=== PATIENT | male | born 1955 | race Caucasian/White ===

== ENCOUNTER → 2018-05-21 | Day surgery (SDC) | payer BC ==
[~2018-05-21] MED LIST: ASPIR 8181 MG PO; CLOPIDOGREL75 MG PO; FENTANYL CITRATE/PF 100MCG/2 ML INJ ONE; GLIPIZIDE10 MG PO; INSULIN REGULAR, HUMAN 100 UNIT/1 ML 3ML VIAL ONE; INVOKANA PO; LYRICA75 MG PO; METFORMIN HCL1000 MG PO; METOPROLOL SUCC25 MG PO; MIDAZOLAM HCL 2 MG/2 ML VIAL ONE; OR PHACO EYE KIT ONE; PIOGLITAZONE30 MG PO; PRAVASTATIN SOD40 MG PO; PREOP PHACO EYE KIT ONE; RAMIPRIL10 MG PO; SERTRALINE HCL50 MG PO; VYBRID PO
--- OUTSIDE RECORDS SUMMARY | 2018-05-21 11:39 | XMS REPORT | Clinical Summary ---
Author Author [facility] Address Unknown Phone Unavailable Care Team Providers Care [employer] Name Role Phone PCP Unavailable Allergies No Known Allergies Medications End Date Status Medication Sig Dispensed Refills Start Date Active aspirin 325 MG tablet Take 325 mg 0 by mouth daily. Active insulin glargine (LANTUS) Inject 30 0 100 unit/mL injection Units subcutaneousl y every morning Use as directed . Active canagliflozin (INVOKANA) Take 300 mg 0 300 mg tablet by mouth daily. Active metFORMIN (GLUCOPHAGE) Take 1,000 mg 0 1000 MG tablet by mouth 2 (two) times daily with breakfast and dinner. Active metoprolol (LOPRESSOR) 50 Take 50 mg by 0 MG tablet mouth daily. Active pravastatin (PRAVACHOL) Take 40 mg by 0 40 MG tablet mouth daily. Active ramipril (ALTACE) 10 MG Take 10 mg by 0 capsule mouth daily. Active ranolazine (RANEXA) 500 Take 500 mg 0 MG 12 hr tablet by mouth 2 (two) times daily. Active vilazodone 40 mg tablet Take 40 mg by 0 mouth daily. Active zolpidem (AMBIEN) 5 MG Take 5 mg by 0 tablet mouth every night as needed for Insomnia. Active isosorbide mononitrate Take 1 tablet 60 tablet 0 (IMDUR) 60 MG 24 hr (60 mg total) 7 tablet by mouth 2 (two) times daily. Active prasugrel (EFFIENT) 10 mg Take 1 tablet 30 tablet 0 Tab tablet (10 mg total) 7 by mouth daily. Active Problems Problem Noted Date Anginal chest pain at rest 09/13/2016 Angina at rest 09/13/2016 Social History Date Tobacco Use Types Packs/Day Years Used Never Smoker Sex Assigned at Date Recorded Not on file Industry Job Start Date Occupation Not on file Not on file Not on file Travel End Travel History Travel Start No recent travel history available. Last Filed Vital Signs Not on file Plan of Treatment Not on file Implants Device Identifier Shelf Expiration Date Model / Serial / Lot Implanted Type Area Manufactur er 04/17/2017 [id number] / / [id number] Device Clsr Angio-Seal Vip 8fr Cardiovasc N/A: Groin ST PANDA [id number] - [id number] ular MED:CARDIA Implanted: Qty: 1 on 09/13/2016 by Ketan Orr MD 04/24/2017 [id number] / / [id number] Synergy Stents-Cor N/A: Coronary [place] Implanted: Qty: 1 on 09/13/2016 by Ketan Brennan MD 04/26/2017 [id number] / / [id number] Synegy Stents-Cor N/A: Coronary [place] Implanted: Qty: 1 on 09/13/2016 by Ketan Brennan MD Results Not on fileafter 05/20/2017 Insurance Payer Benefit Subscriber ID Type Phone Address Plan / Group [facility] xxxxxxxxx [facility] Advance Directives For more information, please contact: [address] [address] Date Inactivated Comments Code Status Date Activated 09/14/2016 4:30 PM Full Code 09/13/2016 5:34 PM This code status was determined by: Patient 09/13/2016 5:34 PM Full Code 09/13/2016 2:21 AM This code status was determined by: Patient
--- OUTSIDE RECORDS SUMMARY | 2018-05-21 11:39 | XMS REPORT ---
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 Allergies, Adverse Reactions, Alerts This patient has no known allergies or adverse reactions. Medications This patient has no known medications. Encounters Start Date/Time End Date/Time Encounter Type Admission Type Attending Clinicians Care Facility Care Department Encounter ID 2017-09-21 00:00:00 2017-09-21 00:00:00 Outpatient [facility] [id number] Results Test Description Test Time Test Comments Text Results Atomic Results Result Comments POCT-GLUCOSE METER 2016-09-14 12:22:00 POC-GLUCOSE METER (BEAKER) (test uzba=8274) 128 mg/dL 70-110 [address]ED AT [address] [address] POCT-GLUCOSE [id number] 08:24:00* Test Item Value Reference Range Comments POC-GLUCOSE METER (BEAKER) (test ztqf=5754) 114 mg/dL 70-110 TESTED AT [address] [address] BASIC METABOLIC [id number] 05:13:00* Test Item Value Reference Range Comments SODIUM (BEAKER) (test grkf=923) 140 meq/L 136-145 POTASSIUM (BEAKER) (test fnhv=736) 3.8 meq/L 3.5-5.1 CHLORIDE (BEAKER) (test yjjc=248) 106 meq/L 98-107 CO2 (BEAKER) (test wltn=047) 21 meq/L 22-29 BLOOD UREA NITROGEN (BEAKER) (test sscy=527) 13 mg/dL 7-21 CREATININE (BEAKER) (test asfk=678) 0.82 mg/dL 0.57-1.25 GLUCOSE RANDOM (BEAKER) (test ojtb=472) 93 mg/dL 70-105 CALCIUM (BEAKER) (test rjid=748) 8.6 mg/dL 8.4-10.2 EGFR (BEAKER) (test wkwn=5594) 96 mL/min/1.73 sq m ESTIMATED GFR IS NOT ACCURATE CREATININE CLEARANCE IN PREDICTING GLOMERULAR FILTRATION RATE. ESTIMATED GFR IS NOT APPLICABLE FOR DIALYSIS PATIENTS. Total 3 timesCREATINE KINASE (CK)2016-09-14 05:13:00* Test Item Value Reference Range Comments CREATINE KINASE TOTAL (BEAKER) (test rsgl=696) 207 U/L 29-200 Total 3 timesCBC W/PLT COUNT & AUTO [id number] 04:56:00* Test Item Value Reference Range Comments WHITE BLOOD CELL COUNT (BEAKER) (test unrw=117) 6.2 K/ L 4.0-10.0 RED BLOOD CELL COUNT (BEAKER) (test hdul=834) 4.96 M/ L 4.20-5.80 HEMOGLOBIN (BEAKER) (test ktqx=879) 14.4 GM/DL 13.0-16.8 HEMATOCRIT (BEAKER) (test eerk=244) 43.8 % 40.0-50.0 MEAN CORPUSCULAR VOLUME (BEAKER) (test pecn=022) 88.2 fL 82.0-98.0 MEAN CORPUSCULAR HEMOGLOBIN (BEAKER) (test pzhq=799) 29.1 pg 27.0-33.0 MEAN CORPUSCULAR HEMOGLOBIN CONC (BEAKER) (test brfl=386) 32.9 GM/DL 32.0-36.0 RED CELL DISTRIBUTION WIDTH (BEAKER) (test cohw=160) 11.9 % 10.3-14.2 PLATELET COUNT (BEAKER) (test vgoz=548) 178 K/CU MM 150-430 MEAN PLATELET VOLUME (BEAKER) (test uglc=164) 7.1 fL 6.5-10.5 NUCLEATED RED BLOOD CELLS (BEAKER) (test shvj=687) 0 /100 WBC 0-0 NEUTROPHILS RELATIVE PERCENT (BEAKER) (test ywkq=670) 58 % LYMPHOCYTES RELATIVE PERCENT (BEAKER) (test jnza=411) 29 % MONOCYTES RELATIVE PERCENT (BEAKER) (test aruw=514) 6 % EOSINOPHILS RELATIVE PERCENT (BEAKER) (test pdva=276) 6 % BASOPHILS RELATIVE PERCENT (BEAKER) (test ipaq=953) 1 % NEUTROPHILS ABSOLUTE COUNT (BEAKER) (test gept=950) 3.62 K/ L 1.80-8.00 LYMPHOCYTES ABSOLUTE COUNT (BEAKER) (test uygi=139) 1.81 K/ L 1.48-4.50 MONOCYTES ABSOLUTE COUNT (BEAKER) (test pacz=461) 0.39 K/ L 0.00-1.30 EOSINOPHILS ABSOLUTE COUNT (BEAKER) (test cdyu=213) 0.36 K/ L 0.00-0.50 BASOPHILS ABSOLUTE COUNT (BEAKER) (test frcv=689) 0.05 K/ L 0.00-0.20 [id number] 22:49:00* Test Item Value Reference Range Comments ACTIVATED CLOTTING TIME (BEAKER) (test fnyx=177) 131 sec TESTED AT [address] [address] POCT-GLUCOSE [id number] 21:23:00* Test Item Value Reference Range Comments POC-GLUCOSE METER (BEAKER) (test msos=5461) 114 mg/dL 70-110 TESTED AT [address] [address] [id number] 21:12:00* Test Item Value Reference Range Comments ACTIVATED CLOTTING TIME (BEAKER) (test bmjn=496) 147 sec TESTED AT [address] [address] CREATINE KINASE (CK)2016-09-13 19:40:00* Test Item Value Reference Range Comments CREATINE KINASE TOTAL (BEAKER) (test izox=798) 158 U/L 29-200 Total 3 [id number] 19:14:00* Test Item Value Reference Range Comments ACTIVATED CLOTTING TIME (BEAKER) (test mfdy=265) 178 sec TESTED AT [address] [address] POCT-GLUCOSE [id number] 18:00:00* Test Item Value Reference Range Comments POC-GLUCOSE METER (BEAKER) (test hank=9808) 112 mg/dL 70-110 TESTED AT [address] [address] [id number] 15:43:00* Test Item Value Reference Range Comments ACTIVATED CLOTTING TIME (BEAKER) (test vreu=736) 270 sec TESTED AT [place] [id number] TROPONIN [id number] 13:25:00* Test Item Value Reference Range Comments TROPONIN I (BEAKER) (test fxsp=694) 0.34 ng/mL 0.00-0.03 Effective 05/05/2014: Reference Range ChangeNew: 0.00-0.03 Previous 0.00-0.15T roponin I (TnI) levels must be interpreted in the context of the presenting symp toms and the clinical findings. Elevated TnI levels indicate myocardial damage, but are not specific for ischemic heart disease. Elevated TnI levels are seen in patients with other cardiac conditions (including myocarditis and congestive he art failure), and slight TnI elevations occur in patients with other conditions, including sepsis, renal failure, acidosis, acute neurological disease, and pers istent tachyarrhythmia.CREATINE KINASE (CK), TOTAL AND [id number] 13:22:00* Test Item Value Reference Range Comments CREATINE KINASE TOTAL (BEAKER) (test gsna=683) 174 U/L 29-200 CREATINE KINASE-MB (BEAKER) (test opgi=789) 4.2 ng/mL 0.0-6.6 CREATINE KINASE-MB INDEX (BEAKER) (test xpll=803) 2.4 % Effective 05/05/2014: CK-MB Reference Range ChangeNew: 0.0-6.6 Previous: 0.0- 4.9CK-MB Reference Range:<6.7 Normal6.7-10.0 Borderline>10.0 Abnormal POCT-GLUCOSE [id number] 11:39:00* Test Item Value Reference Range Comments POC-GLUCOSE METER (BEAKER) (test aofa=4716) 140 mg/dL 70-110 TESTED AT [facility] [address] [facility] [address] HEMOGLOBIN [id number] 11:16:00* Test Item Value Reference Range Comments HEMOGLOBIN A1C (BEAKER) (test nkcw=156) 7.0 % 4.3-6.1 POCT-GLUCOSE [id number] 06:58:00* Test Item Value Reference Range Comments POC-GLUCOSE METER (BEAKER) (test azig=2172) 110 mg/dL 70-110 TESTED AT [facility] [address] [facility] [address] TROPONIN [id number] 04:19:00* Test Item Value Reference Range Comments TROPONIN I (BEAKER) (test ydds=885) 0.39 ng/mL 0.00-0.03 Effective 05/05/2014: Reference Range ChangeNew: 0.00-0.03 Previous 0.00-0.15T roponin I (TnI) levels must be interpreted in the context of the presenting symp toms and the clinical findings. Elevated TnI levels indicate myocardial damage, but are not specific for ischemic heart disease. Elevated TnI levels are seen in patients with other cardiac conditions (including myocarditis and congestive he art failure), and slight TnI elevations occur in patients with other conditions, including sepsis, renal failure, acidosis, acute neurological disease, and pers istent tachyarrhythmia.CREATINE KINASE (CK), TOTAL AND [id number] 04:15:00* Test Item Value Reference Range Comments CREATINE KINASE TOTAL (BEAKER) (test insz=403) 192 U/L 29-200 CREATINE KINASE-MB (BEAKER) (test roay=692) 5.1 ng/mL 0.0-6.6 CREATINE KINASE-MB INDEX (BEAKER) (test edcb=413) 2.7 % Effective 05/05/2014: CK-MB Reference Range ChangeNew: 0.0-6.6 Previous: 0.0- 4.9CK-MB Reference Range:<6.7 Normal6.7-10.0 Borderline>10.0 Abnormal B-TYPE NATRIURETIC FACTOR (BNP)2016-09-13 04:12:00* Test Item Value Reference Range Comments B-TYPE NATRIURETIC PEPTIDE (BEAKER) (test qodr=308) 58 pg/mL 0-100 COMPREHENSIVE METABOLIC [id number] 04:07:00* Test Item Value Reference Range Comments TOTAL PROTEIN (BEAKER) (test eylg=135) 5.9 gm/dL 6.0-8.3 ALBUMIN (BEAKER) (test gtis=8957) 3.8 g/dL 3.5-5.0 ALKALINE PHOSPHATASE (BEAKER) (test ihdy=145) 55 U/L 40-150 BILIRUBIN TOTAL (BEAKER) (test sucl=993) 1.5 mg/dL 0.2-1.2 SODIUM (BEAKER) (test dkkb=179) 141 meq/L 136-145 POTASSIUM (BEAKER) (test amsj=215) 3.8 meq/L 3.5-5.1 CHLORIDE (BEAKER) (test umvf=541) 104 meq/L 98-107 CO2 (BEAKER) (test rmjf=369) 23 meq/L 22-29 BLOOD UREA NITROGEN (BEAKER) (test rdgm=276) 16 mg/dL 7-21 CREATININE (BEAKER) (test gdgz=771) 0.93 mg/dL 0.57-1.25 GLUCOSE RANDOM (BEAKER) (test gdbu=322) 112 mg/dL 70-105 CALCIUM (BEAKER) (test vfru=811) 8.9 mg/dL 8.4-10.2 AST (SGOT) (BEAKER) (test vexg=087) 16 U/L 5-34 ALT (SGPT) (BEAKER) (test jsjq=144) 20 U/L 6-55 EGFR (BEAKER) (test itld=9516) 83 mL/min/1.73 sq m ESTIMATED GFR IS NOT ACCURATE CREATININE CLEARANCE IN PREDICTING GLOMERULAR FILTRATION RATE. ESTIMATED GFR IS NOT APPLICABLE FOR DIALYSIS PATIENTS. BASIC METABOLIC [id number] 04:07:00* Test Item Value Reference Range Comments SODIUM (BEAKER) (test nxbi=584) 141 meq/L 136-145 POTASSIUM (BEAKER) (test gkcm=205) 3.8 meq/L 3.5-5.1 CHLORIDE (BEAKER) (test mvke=360) 104 meq/L 98-107 CO2 (BEAKER) (test fhuh=207) 23 meq/L 22-29 BLOOD UREA NITROGEN (BEAKER) (test hvqx=387) 16 mg/dL 7-21 CREATININE (BEAKER) (test azai=338) 0.93 mg/dL 0.57-1.25 GLUCOSE RANDOM (BEAKER) (test rdok=053) 112 mg/dL 70-105 CALCIUM (BEAKER) (test syoy=366) 8.9 mg/dL 8.4-10.2 EGFR (BEAKER) (test bjhz=1370) 83 mL/min/1.73 sq m ESTIMATED GFR IS NOT ACCURATE CREATININE CLEARANCE IN PREDICTING GLOMERULAR FILTRATION RATE. ESTIMATED GFR IS NOT APPLICABLE FOR DIALYSIS PATIENTS. PROTHROMBIN TIME/[id number] 04:03:00* Test Item Value Reference Range Comments PROTIME (BEAKER) (test ioqt=145) 13.0 seconds 11.7-14.7 INR (BEAKER) (test uasx=202) 1.0 <=5.9 RECOMMENDED COUMADIN/WARFARIN INR THERAPY RANGESSTANDARD DOSE: 2.0 - 3.0 Inclu donald: PROPHYLAXIS for venous thrombosis, systemic embolization; TREATMENT for ana ous thrombosis and/or pulmonary embolus.HIGH RISK: Target INR is 2.5-3.5 for pat ients with mechanical heart valves.CBC W/PLT COUNT & AUTO [id number] 03:54:00* Test Item Value Reference Range Comments WHITE BLOOD CELL COUNT (BEAKER) (test jrqp=975) 5.6 K/ L 4.0-10.0 RED BLOOD CELL COUNT (BEAKER) (test hyey=365) 4.86 M/ L 4.20-5.80 HEMOGLOBIN (BEAKER) (test peyr=775) 14.2 GM/DL 13.0-16.8 HEMATOCRIT (BEAKER) (test cvhs=044) 43.0 % 40.0-50.0 MEAN CORPUSCULAR VOLUME (BEAKER) (test idqy=598) 88.5 fL 82.0-98.0 MEAN CORPUSCULAR HEMOGLOBIN (BEAKER) (test zmod=309) 29.2 pg 27.0-33.0 MEAN CORPUSCULAR HEMOGLOBIN CONC (BEAKER) (test hfnx=586) 33.0 GM/DL 32.0-36.0 RED CELL DISTRIBUTION WIDTH (BEAKER) (test iibw=788) 11.8 % 10.3-14.2 PLATELET COUNT (BEAKER) (test jiov=086) 182 K/CU MM 150-430 MEAN PLATELET VOLUME (BEAKER) (test oqjo=309) 7.1 fL 6.5-10.5 NUCLEATED RED BLOOD CELLS (BEAKER) (test nwbp=615) 0 /100 WBC 0-0 NEUTROPHILS RELATIVE PERCENT (BEAKER) (test vnse=184) 45 % LYMPHOCYTES RELATIVE PERCENT (BEAKER) (test ssmb=329) 41 % MONOCYTES RELATIVE PERCENT (BEAKER) (test opdt=992) 7 % EOSINOPHILS RELATIVE PERCENT (BEAKER) (test kwyd=768) 6 % BASOPHILS RELATIVE PERCENT (BEAKER) (test sdnn=638) 1 % NEUTROPHILS ABSOLUTE COUNT (BEAKER) (test ydak=050) 2.54 K/ L 1.80-8.00 LYMPHOCYTES ABSOLUTE COUNT (BEAKER) (test sgnv=292) 2.27 K/ L 1.48-4.50 MONOCYTES ABSOLUTE COUNT (BEAKER) (test zyoo=691) 0.41 K/ L 0.00-1.30 EOSINOPHILS ABSOLUTE COUNT (BEAKER) (test gvfj=801) 0.34 K/ L 0.00-0.50 BASOPHILS ABSOLUTE COUNT (BEAKER) (test ftdi=183) 0.03 K/ L 0.00-0.20 0.00
--- OUTSIDE RECORDS SUMMARY | 2018-05-21 11:39 | XMS REPORT ---
Author Organization Unknown Address [address] [place] [address] Phone [phone] Care Team Providers Care [employer] Belt Name Role Phone DR. FAN COLÓN 3 [phone] SCOTT NULL MD 82 [phone] KATHY COBB MD 123 [phone] Allergies Code Code System Name Reaction Severity Status Onset NKDA Medications Name Status Start Date Stop Date acetaminophen 300 mg-codeine 30 mg tablet Take 1 tablet every 6 hours by oral route as needed. Completed 05/01/2017 amox/k clav tab 875-125 Completed 03/26/2017 apap/codeine tab 300-30mg Completed 05/01/2017 Augmentin 875 mg-125 mg tablet Take 1 tablet every 12 hours by oral route for 7 days. Completed 01/25/2017 azithromycin 250 mg tablet TAKE 2 TABLETS (500 MG) BY ORAL ROUTE ONCE DAILY FOR 1 DAY THEN 1 TABLET (250 MG) BY ORAL ROUTE ONCE DAILY FOR 4 DAYS Completed 08/09/2017 azithromycin 250 mg tabs Completed 08/09/2017 benzonatate 100 mg caps Completed 07/03/2016 benzonatate 200 mg caps Completed 08/09/2017 benzonatate 200 mg capsule Take 1 capsule 3 times a day by oral route for 10 days. Completed 08/09/2017 cephalexin 500 mg caps Completed 07/03/2016 cephalexin 500 mg capsule Completed 02/16/2016 Cheratussin AC 10 mg-100 mg/5 mL oral liquid Take 10 mL every 4 hours by oral route. Completed 08/09/2017 clonazepam 0.5 mg tablet Take 1 tablet twice a day by oral route as needed for 14 days. Active Not available Co Q-10 200 mg capsule QD Active Not available cyclobenzaprine 10 mg tablet Take 1 tablet twice a day by oral route as needed for 15 days. Completed 07/17/2017 cyclobenzaprine 5 mg tablet Take 1 tablet every day by oral route as needed. Completed 01/25/2017 cyclobenzaprine hcl 10 mg tabs Completed 06/20/2017 cyclobenzaprine hcl 5 mg tabs Completed 03/26/2017 dexamethasone 4 mg/mL injection solution Take 4 mg by injection route. Completed 08/09/2017 Effient 10 mg tablet Take 1 tablet every day by oral route. Active Not available effient 10 mg tabs Completed 03/26/2017 esomeprazole magnesium 40 mg capsule,delayed release Take 1 capsule every day by oral route. Active Not available esomeprazole magnesium 40 mg cpdr Completed 08/09/2017 Farxiga 5 mg tablet Completed 09/15/2016 farxiga 5 mg tabs Completed 07/03/2016 fluticasone 50 mcg/actuation nasal spray,suspension [place] 2 sprays twice a day by intranasal route. Active Not available fluticasone propionate 50 mcg/act susp Completed 05/22/2017 Humalog KwikPen (U-100) Insulin 100 unit/mL subcutaneous INJECT 20 UNITS THREE TIMES DAILY UNDER THE SKIN WITH MEALS Active Not available humalog kwikpen 100 unit/ml sopn Completed 07/17/2017 Invokana 300 mg tablet Take 1 tablet(s) every day by oral route. Active Not available invokana 300 mg tabs Completed 09/27/2017 isosorbide mononitrate ER 30 mg tablet,extended release 24 hr Completed 02/16/2016 isosorbide mononitrate er 30 mg tb24 Completed 03/26/2017 isosorbide mononitrate er 60 mg tb24 Completed 03/26/2017 Kenalog 40 mg/mL suspension for injection Take 40 mg by injection route. Completed 08/09/2017 ketorolac 30 mg/mL (1 mL) injection solution Inject 2 mL by intramuscular route. Completed 05/01/2017 lantus 100 unit/ml soln Completed 03/26/2017 lantus solostar 100 unit/ml sopn Completed 09/27/2017 Lantus Solostar U-100 Insulin 100 unit/mL (3 mL) subcutaneous pen Inject 30 units every day by subcutaneous route. Active Not available Lantus U-100 Insulin 100 unit/mL subcutaneous solution Inject 30 units every day by subcutaneous route for 90 days. Completed 05/01/2017 levocetirizine 5 mg tablet Completed 02/16/2016 Lovaza 1 gram capsule Take 2 capsules twice a day by oral route. Active Not available lyrica 100 mg caps Completed 07/17/2017 Lyrica 100 mg capsule Take 1 capsule every 8 hours by oral route as directed for 30 days. Active Not available lyrica 50 mg caps Completed 06/20/2017 Lyrica 50 mg capsule Take 1 capsule 3 times a day by oral route as directed for 21 days. Completed 06/20/2017 meloxicam 15 mg tablet Take 1 tablet every day by oral route as needed. Completed 07/17/2017 meloxicam 15 mg tabs Completed 05/22/2017 metformin 1,000 mg tablet Take 1 tablet twice a day by oral route. Active Not available metformin hcl 1000 mg tabs Completed 09/27/2017 metoprolol succinate ER 25 mg tablet,extended release 24 hr Take 1 tablet(s) every day by oral route Completed 03/26/2017 metoprolol succinate er 25 mg tb24 Completed 03/26/2017 metoprolol succinate ER 50 mg tablet,extended release 24 hr Take 1 tablet every day by oral route. Completed 01/09/2017 metoprolol succinate er 50 mg tb24 Completed 03/26/2017 metoprolol tartrate 50 mg tablet Take 1 tablet every day by oral route. Active Not available metoprolol tartrate 50 mg tabs Completed 09/27/2017 nabumetone 750 mg tablet Completed 02/16/2016 nitroglycerin 0.4 mg subl Completed 07/12/2016 Nitrostat 0.[address] 1 tablet as needed by sublingual route. Completed 01/09/2017 novolog flexpen 100 unit/ml sopn Completed 07/03/2016 Novolog Flexpen U-100 Insulin aspart 100 unit/mL subcutaneous Inject 20 units 3 times a day by subcutaneous route for 90 days. Completed 01/09/2017 [id number] cap 1gm Completed 09/27/2017 oseltamivir phosphate 75 mg caps Completed 08/09/2017 prasugrel 10 mg tabs Completed 09/27/2017 pravastatin 40 mg tablet Take 1 tablet every day by oral route in the evening. Active Not available pravastatin sodium 40 mg tabs Completed 08/09/2017 prepopik jefferson Completed 03/26/2017 Prepopik 10 mg-3.5 gram-12 gram oral powder packet Completed 02/16/2016 ramipril 10 mg caps Completed 08/09/2017 ramipril 10 mg capsule Take 1 capsule every day by oral route. Active Not available ranexa 500 mg tb12 Completed 03/26/2017 smz/tmp ds tab 800-160 Completed 03/26/2017 Tamiflu 75 mg capsule Take 1 capsule twice a day by oral route for 5 days. Completed 08/09/2017 Tessalon Perles 100 mg capsule Take 1 capsule 3 times a day by oral route. Completed 03/14/2016 tramadol 50 mg tablet i tid prn Completed 07/12/2016 tramadol hcl 50 mg tabs Completed 03/26/2017 Viibryd 20 mg tablet Take 2 tablets every day by oral route. Completed 07/03/2016 viibryd 20 mg tabs Completed 07/03/2016 Viibryd 40 mg tablet Take 1 tablet every day by oral route. Active Not available viibryd 40 mg tabs Completed 09/27/2017 virtussin ac lorenza 100-10/5 Completed 08/09/2017 zolpidem 10 mg tablet Take 0.5 tablets every day by oral route. Completed 09/15/2016 zolpidem tartrate 10 mg tabs Completed 07/03/2016 Problems Name Status Onset Date Source Type II Diabetes Mellitus Uncontrolled Active 02/16/2016 Mixed Hyperlipidemia Active 02/16/2016 Body Mass Index 25-29 - Overweight Active 02/16/2016 Depressive Disorder Active 02/16/2016 Benign Essential Hypertension Active 02/16/2016 Coronary Atherosclerosis Active 02/16/2016 Type 2 Diabetes Mellitus without Complication Active 03/14/2016 Insomnia Active 07/03/2016 Multiple Joint Pain Active 07/03/2016 Chest Pain Active 07/03/2016 AST/SGOT Level Raised Active 07/12/2016 Elevated Total Bilirubin Active 07/12/2016 Benign Prostatic Hyperplasia Active 10/18/2016 Fecal Occult Blood: Positive Active 10/18/2016 Internal Hemorrhoids Active 01/02/2017 Esophagitis Active 01/02/2017 Gastritis Active 01/02/2017 Hiatal Hernia Active 01/02/2017 Body Mass Index 30+ - Obesity Active 01/25/2017 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 01/25/2017 Seasonal Allergic Rhinitis Active 01/25/2017 Elevated Levels of Transaminase & Lactic Acid Dehydrogenase Active 01/25/2017 Sciatica Active 05/01/2017 Procedures Date Name Performed by 01/02/2017 Colonoscopy Notes: repeat in 5 yrs Information not available 09/01/2016 Angioplasty Notes: 2 new stents Information not available 06/18/2011 Coronary Artery Graft Notes: x 4 Information not available 06/18/2011 Neck Spine Disk Surgery Information not available 06/18/2009 Angioplasty Notes: 2 Stents Information not available 06/18/2009 Cholecystectomy Information not available Shoulder Joint Surgery Notes: Right Rotator Cuff Information not available 07/03/2016 Electrocardiogram [facility] - [address] [id number] (Work [place]) 05/03/2017 US, Abdomen [facility] [address] [place] [address] ([address]) Notes: left leg wound surgery -1999 right rotor cuff-2004 2 heart stents 2010 gallbladder removal-2009 CABG x 4-2011 stent insertion: 09/13/16 Lab Results Date Name Specimen Result Interpretation Description Value Range Status Address 08/15/2017 Albumin:creatinine Ratio, Urine No observation recorded. [facility]: [address] 08/09/2017 CMP, Serum or Plasma High Alt 66 U/L 0-55 U/L Final [facility]: [address] High Ast 40 U/L 5-34 U/L Final [facility]: [address] Bun 17.0 mg/dL 8.4-25.7 mg/dL Final [facility]: [address] Alk Phos 64 unit/L 40-150 unit/L Final [facility]: [address] Glucose 94 mg/dL 70-99 mg/dL Final [facility]: [address] Albumin 3.9 g/dL 3.5-5.0 g/dL Final [facility]: [address] Creatinine 0.77 mg/dL 0.72-1.25 mg/dL Final [facility]: [address] eGFR Non- >60 mL/min/1.73m2 >60 mL/min/1.73m2 Final [facility]: [address] Total Bilirubin 0.9 mg/dL 0.2-1.2 mg/dL Final [facility]: [address] eGFR - >60 mL/min/1.73m2 >60 mL/min/1.73m2 Final [facility]: [address] Sodium 141 mEq/L 136-145 mEq/L Final [facility]: [address] Potassium 4.7 mEq/L 3.5-5.1 mEq/L Final [facility]: [address] Chloride 100 mmol/L 98-107 mmol/L Final [facility]: [address] Total Protein 6.7 g/dL 6.4-8.3 g/dL Final [facility]: [address] Calcium 9.7 mg/dL 8.8-10.0 mg/dL Final [facility]: [address] Co2 30.0 mmol/L 23.0-31.0 mmol/L Final [facility]: [address] Anion Gap 11 calc Final [facility]: [address] [place] [address], [place] 08/09/2017 Lipid Panel, Serum High Hdl 77 mg/dL 40-60 mg/dL Final [facility]: [address] High Triglyceride 169 mg/dL 0-149 mg/dL Final [facility]: [address] VLDL Calc. 34 mg/dL Final [facility]: [address] cholesterol/HDL Ratio 2.3 mg/dL Final [facility]: [address] non-HDL Cholesterol Calc. 97 mg/dL 0-160 mg/dL Final [facility]: [address] Cholesterol 174 mg/dL 0-199 mg/dL Final [facility]: [address] LDL Calc. 63 mg/dL 0-130 mg/dL Final [facility]: [address] 08/09/2017 HbA1C (Hemoglobin a1C), Blood High A1C W/eag 7.2 % 1.0-5.7 % Final [facility]: [address] Average Blood Glucose 160 mg/dL Final [facility]: [address], [place] 08/09/2017 Albumin:creatinine Ratio, Urine Type Urine Microlalbumin 10 mg/L [facility]: [address], [place] Type Urine Creatinine 100 mg/dL [facility]: [address], [place] Type A:C Ratio <30 mg/g (Normal) [facility]: [address], [place] 07/17/2017 Rapid Flu (A+B) Nose (nasal passage) Type Flu a negative [facility]: [address] [place] [address], [place] Nose (nasal passage) Type Flu B negative [facility]: [address] [facility], [place] 05/01/2017 CMP, Serum or Plasma High Alt 65 U/L 0-55 U/L Final [facility]: [address] High Ast 41 U/L 5-34 U/L Final [facility]: [address] Bun 14.6 mg/dL 8.4-25.7 mg/dL Final [facility]: [address] [place] [address], [place] Alk Phos 70 unit/L 40-150 unit/L Final [facility]: [address] High Glucose 184 mg/dL 70-99 mg/dL Final [facility]: [address] Albumin 4.2 g/dL 3.5-5.0 g/dL Final [facility]: [address] Creatinine 0.82 mg/dL 0.72-1.25 mg/dL Final [facility]: [address] eGFR Non- >60 mL/min/1.73m2 >60 mL/min/1.73m2 Final [facility]: [address] High Total Bilirubin 1.4 mg/dL 0.2-1.2 mg/dL Final [facility]: [address] eGFR - >60 mL/min/1.73m2 >60 mL/min/1.73m2 Final [facility]: [address] [facility] [place] [address], [place] Sodium 140 mEq/L 136-145 mEq/L Final [facility]: [address] Potassium 4.4 mEq/L 3.5-5.1 mEq/L Final [facility]: [address] Chloride 103 mmol/L 98-107 mmol/L Final [facility]: [address] [place] [address], [place] Total Protein 7.0 g/dL 6.4-8.3 g/dL Final [facility]: [address] [place] [address], [place] Calcium 9.9 mg/dL 8.8-10.0 mg/dL Final [facility]: [address] [place] [address], [place] Co2 23.9 mmol/L 23.0-31.0 mmol/L Final [facility]: [address] Anion Gap 13 calc Final [facility]: [address] 05/01/2017 Lipid Panel, Serum Hdl 55 mg/dL 40-60 mg/dL Final [facility]: [address] High Triglyceride 184 mg/dL 0-149 mg/dL Final [facility]: [address] VLDL Calc. 37 mg/dL Final [facility]: [address] cholesterol/HDL Ratio 2.7 mg/dL Final [facility]: [address] non-HDL Cholesterol Calc. 92 mg/dL 0-160 mg/dL Final [facility]: [address] Cholesterol 147 mg/dL 0-199 mg/dL Final [facility]: [address] LDL Calc. 55 mg/dL 0-130 mg/dL Final [facility]: [address] [place] [address], [place] 05/01/2017 HbA1C (Hemoglobin a1C), Blood High A1C W/eag 7.5 % 1.0-5.7 % Final [facility]: [address] Average Blood Glucose 169 mg/dL Final [facility]: [address] 02/27/2017 Hepatic Function Panel, Serum Alt 44 U/L 0-55 U/L Final [facility]: [address] [place] [address], [place] Ast 30 U/L 5-34 U/L Final [facility]: [address] [place] [address], [place] Alk Phos 65 unit/L 40-150 unit/L Final [facility]: [address] Albumin 4.1 g/dL 3.5-5.0 g/dL Final [facility]: [address] [place] [address], [place] Total Bilirubin 1.1 mg/dL 0.2-1.2 mg/dL Final [facility]: [address] [place] [address], [place] Indirect Bilirubin 0.8 Final [facility]: [address] Direct Bilirubin 0.3 mg/dL 0.0-0.5 mg/dL Final [facility]: [address] Total Protein 6.9 g/dL 6.4-8.3 g/dL Final [facility]: [address] 01/23/2017 CMP, Serum or Plasma High Alt 56 U/L 0-55 U/L Final [facility]: [address] High Ast 42 U/L 5-34 U/L Final [facility]: [address] Bun 15.0 mg/dL 8.4-25.7 mg/dL Final [facility]: [address] Alk Phos 78 unit/L 40-150 unit/L Final [facility]: [address] High Glucose 109 mg/dL 70-99 mg/dL Final [facility]: [address] Albumin 4.2 g/dL 3.5-5.0 g/dL Final [facility]: [address] Creatinine 1.01 mg/dL 0.72-1.25 mg/dL Final [facility]: [address] eGFR Non- >60 mL/min/1.73m2 >60 mL/min/1.73m2 Final [facility]: [address] Total Bilirubin 0.8 mg/dL 0.2-1.2 mg/dL Final [facility]: [address] eGFR - >60 mL/min/1.73m2 >60 mL/min/1.73m2 Final [facility]: [address] [place] [address], [place] Sodium 143 mEq/L 136-145 mEq/L Final [facility]: [address] [place] [address], [place] Potassium 4.5 mEq/L 3.5-5.1 mEq/L Final [facility]: [address] [place] [address], [place] Chloride 101 mmol/L 98-107 mmol/L Final [facility]: [address] [place] [address], [place] Total Protein 7.1 g/dL 6.4-8.3 g/dL Final [facility]: [address] Calcium 9.8 mg/dL 8.8-10.0 mg/dL Final [facility]: [address] Co2 24.8 mmol/L 23.0-31.0 mmol/L Final [facility]: [address] Anion Gap 17 calc Final [facility]: [address] [place] [address], [place] 01/23/2017 Lipid Panel, Serum Hdl 58 mg/dL 40-60 mg/dL Final [facility]: [address] High Triglyceride 305 mg/dL 0-149 mg/dL Final [facility]: [address] VLDL Calc. 61 mg/dL Final [facility]: [address] cholesterol/HDL Ratio 3 mg/dL Final [facility]: [address] non-HDL Cholesterol Calc. 99 mg/dL 0-160 mg/dL Final [facility]: [address] Cholesterol 157 mg/dL 0-199 mg/dL Final [facility]: [address] LDL Calc. 38 mg/dL 0-130 mg/dL Final [facility]: [address] [place] [address], [place] 01/23/2017 HbA1C (Hemoglobin a1C), Blood High A1C W/eag 7.3 % 1.0-5.7 % Final [facility]: [address] Average Blood Glucose 163 mg/dL Final [facility]: [address] [place] [address], [place] 01/09/2017 Culture, Throat Upper Respiratory Culture final report Final [facility] [facility] [address] Result 1 comment Final [facility]: [address] [place] [address], [place] 10/11/2016 Hepatitis B Surface Ab, Quantitative, Serum No observation recorded. [facility]: [address], [place] 10/11/2016 Hepatitis B Surface Ab, Quantitative, Serum Hepatitis B Surf Ab Quant 12.0 mIU/mL immunity>9.9 mIU/mL Final [facility]: [address] [place] [address], [place] 10/11/2016 CMP, Serum or Plasma Alt 33 U/L 0-55 U/L Final [facility]: [address] Ast 30 U/L 5-34 U/L Final [facility]: [address] Bun 16 mg/dL 8-26 mg/dL Final [facility]: [address] Alk Phos 75 unit/L 40-150 unit/L Final [facility]: [address] High Glucose 123 mg/dL 70-99 mg/dL Final [facility]: [address] [facility] [address] Albumin 4.3 g/dL 3.5-5.0 g/dL Final [facility]: [address] [facility] [address] Creatinine 1.03 mg/dL 0.72-1.25 mg/dL Final [facility]: [address] eGFR Non- >60 mL/min/1.73m2 >60 mL/min/1.73m2 Final [facility]: [address] High Total Bilirubin 1.8 mg/dL 0.2-1.2 mg/dL Final [facility]: [address] eGFR - >60 mL/min/1.73m2 >60 mL/min/1.73m2 Final [facility]: [address] Sodium 142 mEq/L 136-145 mEq/L Final [facility]: [address] Potassium 4.7 mEq/L 3.5-5.1 mEq/L Final [facility]: [address] Chloride 103 mmol/L 98-107 mmol/L Final [facility]: [address] Total Protein 6.8 g/dL 6.4-8.3 g/dL Final [facility]: [address] Calcium 9.5 mg/dL 8.8-10.0 mg/dL Final [facility]: [address] Co2 23.3 mmol/L 23.0-31.0 mmol/L Final [facility]: [address] Anion Gap 16 calc Final [facility]: [address] 10/11/2016 Lipid Panel, Serum High Hdl 75 mg/dL 40-60 mg/dL Final [facility]: [address] High Triglyceride 223 mg/dL 0-149 mg/dL Final [facility]: [address] VLDL Calc. 45 mg/dL Final [facility]: [address] cholesterol/HDL Ratio 2 mg/dL Final [facility]: [address] non-HDL Cholesterol Calc. 96 mg/dL 0-160 mg/dL Final [facility]: [address] Cholesterol 171 mg/dL 0-199 mg/dL Final [facility]: [address] LDL Calc. 51 mg/dL 0-130 mg/dL Final [facility]: [address] 10/11/2016 PSA, Serum or Plasma PSA, Total 0.21 NG/mL <4.00 NG/mL Final [facility]: [address] 10/11/2016 HbA1C (Hemoglobin a1C), Blood High A1C W/eag 6.9 % 1.0-5.7 % Final [facility]: [address] Average Blood Glucose 151 mg/dL Final [facility]: [address], [place] 07/17/2016 CMP, Serum or Plasma Sodium 143 mmol/L 136-145 mmol/L Final [facility] (Lab): [address], [place] Potassium 4.6 mmol/L 3.5-5.1 mmol/L Final [facility] (Lab): [address], [place] Chloride 105.0 mmol/L 98-107 mmol/L Final [facility] (Lab): [address], [place] Carbon Dioxide 26.0 mmol/L 21-32 mmol/L [facility] ([facility]): [address], [place] Anion Gap 16.6 - [facility] (Lab): [address], [place] High Glucose 133 mg/dL 74-106 mg/dL Final [facility] (Lab): [address], [place] High Blood Urea Nitrogen 22 mg/dL 7-18 mg/dL Final [facility] (Lab): [address], [place] Glomerular Filtration Rate > 60 mL/min >=60 mL/min Final [facility] (Lab): [address], [place] Creatinine 0.80 mg/dL 0.7-1.3 mg/dL Final [facility] (Lab): [address], [place] High BUN/creatinine Ratio 27.5 - Final [facility] (Lab): [address], [place] Total Protein 6.8 gram/dL 6.4-8.2 gram/dL Final [facility] (Lab): [address], [place] Albumin 3.8 g/dL 3.4-5.0 g/dL Final [facility] (Lab): [address], [place] Globulin 3.0 gram/dL 2.7-4.2 gram/dL Final [facility] (Lab): [address], [place] Albumin/globulin Ratio 1.3 0.75-1.50 Final [facility] (Lab): [address], [place] Calcium 9.1 mg/dL 8.5-10.1 mg/dL Final [facility] (Lab): [address], [place] Bilirubin Total 0.70 mg/dL 0.0-1.0 mg/dL Final [facility] (Lab): [address], [place] SGOT/AST 35 iunit/L 15-37 iunit/L [facility] (Lab): [address], [place] SGPT/ALT 57 iunit/L 12-78 iunit/L [facility] (Lab): [address], [place] Alkaline Phosphatase Total 97 iunit/L 45-117 iunit/L [facility] (Lab): [address], [place] Performing Lab: Final [facility] (Lab): [address], [place] 07/17/2016 CBC W/ Manual Diff White Blood Cell 6.0 K/mm3 4.5-12.5 K/mm3 Final [facility] (Lab): [address], [place] Red Blood Cell 5.56 mill/mm3 4.0-5.8 mill/mm3 Final [facility] (Lab): [address], [place] Hemoglobin 16.5 gram/dL 13.0-17.5 gram/dL [facility] (Lab): [address], [place] Hematocrit 48.9 % 42.0-52.0 % [facility] (Lab): [address], [place] Mean Cell Volume 88 fL 80-98 fL Final [facility] (Lab): [address], [place] Mean Cell HGB 29.8 picogram 27.0-33.0 picogram Final [facility] (Lab): [address], [place] Mean Cell HGB Concetration 33.9 gram/dL 33.0-36.0 gram/dL Final [facility] (Lab): [address], [place] Red Cell Distribution Width 13.4 % 11.6-16.2 % [facility] (Lab): [address], [place] Platelet Count 240 K/mm3 150-450 K/mm3 [facility] (Lab): [address], [place] Mean Platelet Volume 8.7 fL 6.7-11.0 fL [facility] (Lab): [address], [place] Neutrophil # 3.00 K/mm3 1.8-7.7 K/mm3 [facility] (Lab): [address], [place] Lymphocyte # 2.0 K/mm3 1.0-5.0 K/mm3 [facility] (Lab): [address], [place] Monocyte # 0.60 K/mm3 0-0.8 K/mm3 [facility] (Lab): [address], [place] Eosinophil # 0.4 K/mm3 0.0-0.5 K/mm3 [facility] (Lab): [address], [place] Basophil # 0.1 K/mm3 0.0-0.2 K/mm3 [facility] (Lab): [address], [place] Manual Diff Required yes Final [facility] (Lab): [address], [place] Stain Acceptability stain acceptable [facility] (Lab): [address], [place] Total Cells Counted 100 #cells Final [facility] (Lab): [address], [place] Segmented Neutrophils 56 % 39-69 % Final [facility] (Lab): [address], [place] Lymphocyte 29 % 25-55 % Final [facility] (Lab): [address], [place] Monocyte 8 % 0-10 % Final [facility] (Lab): [address], [place] Eosinophil 5 % 0.0-5.0 % [facility] (Lab): [address], [place] High Basophil 2 % 0-1.0 % [facility] (Lab): [address], [place] Morphology Comment normal Final [facility] (Lab): [address] [place] Platelet Estimate adequate [facility] (Lab): [address] [place] Platelet Morphology normal Final [facility] (Lab): [address] [place] Performing Lab: Final [facility] (Lab): [address] [place] 07/17/2016 Glucose, Fingerstick, Blood (Glucometer) High Glubed 186 mg/dL 74-106 mg/dL Final [facility] (Lab): [address] [place] Performing Lab: Final [facility] (Lab): [address] 07/16/2016 Troponin I, Serum or Plasma High troponin-I 0.046 NG/mL 0-0.045 NG/mL Final [facility] ([facility]): [address] [place] Performing Lab: [facility] (Lab): [address] 07/16/2016 Glucose, Fingerstick, Blood (Glucometer) High Glubed 138 mg/dL 74-106 mg/dL Final [facility] (Lab): [address] Performing Lab: [facility] (Lab): [address] 07/16/2016 Glucose, Fingerstick, Blood (Glucometer) High Glubed 186 mg/dL 74-106 mg/dL Final [facility] (Lab): [address] Performing Lab: [facility] (Lab): [address] [place] 07/16/2016 Glucose, Fingerstick, Blood (Glucometer) High Glubed 145 mg/dL 74-106 mg/dL [facility] (Lab): [address] Performing Lab: Final [facility] (Lab): [address] [place] 07/16/2016 Glucose, Fingerstick, Blood (Glucometer) High Glubed 126 mg/dL 74-106 mg/dL Final [facility] (Lab): [address] Performing Lab: Final [facility] (Lab): [address], [place] 07/15/2016 Glucose, Fingerstick, Blood (Glucometer) High Glubed 118 mg/dL 74-106 mg/dL Final [facility] (Lab): [address], [place] Performing Lab: [facility] (Lab): [address], [place] 07/15/2016 CBC W/ Auto Diff White Blood Cell 6.0 K/mm3 4.5-12.5 K/mm3 Final [facility] (Lab): [address], [place] Red Blood Cell 5.20 mill/mm3 4.0-5.8 mill/mm3 Final [facility] (Lab): [address], [place] Hemoglobin 15.5 gram/dL 13.0-17.5 gram/dL Final [facility] (Lab): [address], [place] Hematocrit 45.8 % 42.0-52.0 % Final [facility] (Lab): [address], [place] Mean Cell Volume 88 fL 80-98 fL Final [facility] (Lab): [address], [place] Mean Cell HGB 29.8 picogram 27.0-33.0 picogram Final [facility] (Lab): [address], [place] Mean Cell HGB Concetration 33.8 gram/dL 33.0-36.0 gram/dL Final [facility] (Lab): [address], [place] Red Cell Distribution Width 13.8 % 11.6-16.2 % Final [facility] (Lab): [address], [place] Platelet Count 200 K/mm3 150-450 K/mm3 Final [facility] (Lab): [address], [place] Mean Platelet Volume 8.6 fL 6.7-11.0 fL Final [facility] (Lab): [address], [place] Neutrophil % 55.2 % 39.0-69.0 % [facility] (Lab): [address], [place] Lymphocyte % 27.9 % 25.0-55.0 % [facility] (Lab): [address], [place] Monocyte % 9.6 % 0.0-10.0 % [facility] (Lab): [address], [place] High Eosinophil % 6.5 % 0.0-5.0 % [facility] (Lab): [address], [place] Basophil % 0.8 % 0.0-1.0 % [facility] (Lab): [address], [place] Neutrophil # 3.30 K/mm3 1.8-7.7 K/mm3 [facility] (Lab): [address], [place] Lymphocyte # 1.7 K/mm3 1.0-5.0 K/mm3 Final [facility] (Lab): [address], [place] Monocyte # 0.60 K/mm3 0-0.8 K/mm3 Final [facility] (Lab): [address], [place] Eosinophil # 0.4 K/mm3 0.0-0.5 K/mm3 [facility] (Lab): [address], [place] Basophil # 0.0 K/mm3 0.0-0.2 K/mm3 Final [facility] (Lab): [address], [place] Manual Diff Required no [facility] ([facility]): [address], [place] Performing Lab: Final [facility] (Lab): [address], [place] 07/15/2016 Lipid Panel, Serum Blood venous Triglycerides 141 mg/dL 20-150 mg/dL Final [facility] (Lab): [address], [place] Blood venous Cholesterol 145 mg/dL 0-200 mg/dL Final [facility] (Lab): [address], [place] Blood venous cholesterol/HDL Ratio 2.0 ratio 0-4.9 ratio Final [facility] (Lab): [address], [place] Blood venous High HDL Cholesterol 70 mg/dL 40-60 mg/dL Final [facility] (Lab): [address], [place] Blood venous Low Lipoprotein LDL 70 mg/dL 100-129 mg/dL [facility] (Lab): [address], [place] Blood venous Performing Lab: Final [facility] (Lab): [address], [place] 07/15/2016 CMP, Serum or Plasma Sodium 142 mmol/L 136-145 mmol/L [facility] (Lab): [address], [place] Potassium 4.2 mmol/L 3.5-5.1 mmol/L [facility] (Lab): [address], [place] Chloride 102.0 mmol/L 98-107 mmol/L [facility] (Lab): [address], [place] Carbon Dioxide 27.0 mmol/L 21-32 mmol/L [facility] (Lab): [address], [place] Anion Gap 17.2 - Final [facility] ([facility]): [address], [place] Glucose 103 mg/dL 74-106 mg/dL [facility] (Lab): [address], [place] Blood Urea Nitrogen 18 mg/dL 7-18 mg/dL [facility] (Lab): [address], [place] Glomerular Filtration Rate > 60 mL/min >=60 mL/min Final [facility] (Lab): [address], [place] Creatinine 0.80 mg/dL 0.7-1.3 mg/dL [facility] (Lab): [address], [place] High BUN/creatinine Ratio 22.6 - [facility] (Lab): [address], [place] Total Protein 6.4 gram/dL 6.4-8.2 gram/dL [facility] (Lab): [address], [place] Albumin 3.7 g/dL 3.4-5.0 g/dL [facility] (Lab): [address], [place] Globulin 2.7 gram/dL 2.7-4.2 gram/dL Final [facility] (Lab): [address], [place] Albumin/globulin Ratio 1.4 0.75-1.50 Final [facility] (Lab): [address] [place] Calcium 9.0 mg/dL 8.5-10.1 mg/dL [facility] (Lab): [address] [place] High Bilirubin Total 1.70 mg/dL 0.0-1.0 mg/dL [facility] (Lab): [address] [place] SGOT/AST 23 iunit/L 15-37 iunit/L [facility] ([facility]): [address], [place] SGPT/ALT 34 iunit/L 12-78 iunit/L [facility] ([facility]): [address] [place] Alkaline Phosphatase Total 81 iunit/L 45-117 iunit/L Final [facility] (Lab): [address] [place] Performing Lab: [facility] (Lab): [address] [place] 07/15/2016 Troponin I, Serum or Plasma Panic High troponin-I 0.057 NG/mL 0-0.045 NG/mL Final [facility] ([facility]): [address] [place] Performing Lab: [facility] (Lab): [address] [place] 07/15/2016 Glucose, Fingerstick, Blood (Glucometer) High Glubed 158 mg/dL 74-106 mg/dL Final [facility] ([facility]): [address] [place] Performing Lab: Final [facility] (Lab): [address] [place] 07/15/2016 Glucose, Fingerstick, Blood (Glucometer) High Glubed 120 mg/dL 74-106 mg/dL Final [facility] ([facility]): [address] [place] Performing Lab: Final [facility] (Lab): [address] [place] 07/15/2016 Glucose, Fingerstick, Blood (Glucometer) High Glubed 124 mg/dL 74-106 mg/dL Final [facility] (Lab): [address], [place] Performing Lab: Final [facility] (Lab): [address], [place] 07/14/2016 CBC W/ Auto Diff White Blood Cell 7.1 K/mm3 4.5-12.5 K/mm3 Final [facility] (Lab): [address], [place] Red Blood Cell 5.10 mill/mm3 4.0-5.8 mill/mm3 Final [facility] (Lab): [address], [place] Hemoglobin 14.9 gram/dL 13.0-17.5 gram/dL Final [facility] (Lab): [address], [place] Hematocrit 45.4 % 42.0-52.0 % Final [facility] (Lab): [address], [place] Mean Cell Volume 89 fL 80-98 fL Final [facility] (Lab): [address], [place] Mean Cell HGB 29.3 picogram 27.0-33.0 picogram Final [facility] (Lab): [address], [place] Low Mean Cell HGB Concetration 32.9 gram/dL 33.0-36.0 gram/dL Final [facility] (Lab): [address], [place] Red Cell Distribution Width 14.0 % 11.6-16.2 % Final [facility] (Lab): [address], [place] Platelet Count 207 K/mm3 150-450 K/mm3 Final [facility] (Lab): [address], [place] Mean Platelet Volume 7.9 fL 6.7-11.0 fL Final [facility] (Lab): [address], [place] Neutrophil % 58.9 % 39.0-69.0 % Final [facility] (Lab): [address], [place] Lymphocyte % 27.8 % 25.0-55.0 % Final [facility] (Lab): [address], [place] Monocyte % 7.8 % 0.0-10.0 % Final [facility] (Lab): [address], [place] Eosinophil % 4.7 % 0.0-5.0 % [facility] (Lab): [address], [place] Basophil % 0.8 % 0.0-1.0 % Final [facility] (Lab): [address], [place] Neutrophil # 4.20 K/mm3 1.8-7.7 K/mm3 Final [facility] (Lab): [address], [place] Lymphocyte # 2.0 K/mm3 1.0-5.0 K/mm3 Final [facility] (Lab): [address], [place] Monocyte # 0.60 K/mm3 0-0.8 K/mm3 Final [facility] (Lab): [address], [place] Eosinophil # 0.3 K/mm3 0.0-0.5 K/mm3 Final [facility] (Lab): [address], [place] Basophil # 0.1 K/mm3 0.0-0.2 K/mm3 Final [facility] (Lab): [address], [place] Performing Lab: [facility] ([facility]): [address], [place] 07/14/2016 Prothrombin Time Prothrombin Time Patient 9.4 seconds 9.0-13.0 seconds Final [facility] (Lab): [address], [place] International Normal Ratio 0.8 0.8-1.2 Final [facility] (Lab): [address], [place] Performing Lab: [facility] (Lab): [address], [place] 07/14/2016 Partial Thromboplastin Time Normal Thromboplastin Time Partial 30.6 seconds 25.0-36.5 seconds Final [facility] (Lab): [address], [place] Performing Lab: Final [facility] (Lab): [address], [place] 07/14/2016 CMP, Serum or Plasma Blood venous Sodium 141 mmol/L 136- 145 mmol/L Final [facility] (Lab): [address], [place] Blood venous Potassium 3.8 mmol/L 3.5-5.1 mmol/L Final [facility] (Lab): [address], [place] Blood venous Chloride 103.0 mmol/L 98-107 mmol/L Final [facility] (Lab): [address], [place] Blood venous Carbon Dioxide 31.0 mmol/L 21-32 mmol/L Final [facility] (Lab): [address], [place] Blood venous Anion Gap 10.8 - Final [facility] (Lab): [address], [place] Blood venous Glucose 78 mg/dL 74-106 mg/dL Final [facility] (Lab): [address], [place] Blood venous High Blood Urea Nitrogen 21 mg/dL 7-18 mg/dL Final [facility] (Lab): [address], [place] Blood venous Glomerular Filtration Rate > 60 mL/min >=60 mL/min Final [facility] (Lab): [address], [place] Blood venous Creatinine 0.90 mg/dL 0.7-1.3 mg/dL Final [facility] (Lab): [address], [place] Blood venous High BUN/creatinine Ratio 24.1 - Final [facility] (Lab): [address], [place] Blood venous Total Protein 6.6 gram/dL 6.4-8.2 gram/dL Final [facility] (Lab): [address], [place] Blood venous Albumin 3.7 g/dL 3.4-5.0 g/dL Final [facility] (Lab): [address], [place] Blood venous Globulin 2.9 gram/dL 2.7-4.2 gram/dL Final [facility] (Lab): [address], [place] Blood venous Albumin/globulin Ratio 1.3 0.75-1.50 Final [facility] (Lab): [address], [place] Blood venous Calcium 9.0 mg/dL 8.5-10.1 mg/dL Final [facility] (Lab): [address], [place] Blood venous High Bilirubin Total 1.10 mg/dL 0.0-1.0 mg/dL Final [facility] (Lab): [address], [place] Blood venous SGOT/AST 24 iunit/L 15-37 iunit/L Final [facility] (Lab): [address], [place] Blood venous SGPT/ALT 37 iunit/L 12-78 iunit/L Final [facility] (Lab): [address], [place] Blood venous Alkaline Phosphatase Total 86 iunit/L 45-117 iunit/L Final [facility] (Lab): [address], [place] Blood venous Performing Lab: Final [facility] (Lab): [address] [place] 07/14/2016 CK (Creatine Kinase), Total, Serum High Creatine Kinase (CK) 237 iunit/L 26-208 iunit/L Final [facility] ([facility]): [address] [place] Performing Lab: Final [facility] (Lab): [address] [place] 07/14/2016 Lipase, Serum or Plasma Normal Lipase 168 U/L 73.0-393.0 U/L Final [facility] ([facility]): [address] [place] Performing Lab: Final [facility] (Lab): [address] [place] 07/14/2016 Troponin I, Serum or Plasma Normal troponin-I 0.031 NG/mL 0-0.045 NG/mL Final [facility] ([facility]): [address] [place] Performing Lab: Final [facility] (Lab): [address] [place] 07/14/2016 BNP (B-type Natriuretic Peptide), Blood B-type Natriuretic Peptide 11.79 pgram/mL 0-100 pgram/mL Final [facility] ([facility]): [address] [place] Performing Lab: Final [facility] (Lab): [address], [place] 07/14/2016 Troponin I, Serum or Plasma troponin-I 0.031 NG/mL 0-0.045 NG/mL Final [facility] (Lab): [address], [place] Performing Lab: Final [facility] (Lab): [address], [place] 07/14/2016 Glucose, Fingerstick, Blood (Glucometer) Blood capillary Low Glubed 66 mg/dL 74-106 mg/dL Final [facility] ([facility]): [address], [place] Blood capillary Performing Lab: Final [facility] (Lab): [address], [place] 07/14/2016 HbA1C (Hemoglobin a1C), Blood High Glycosylated Hemoglobin (Ha1C) 6.5 % HbA1 4.8-6.0 % HbA1 Final [facility] (Lab): [address], [place] Estimated Average Glucose 140 mg/dL Final [facility] (Lab): [address], [place] Performing Lab: [facility] (Lab): [address], [place] 07/14/2016 Troponin I, Serum or Plasma Panic High troponin-I 0.063 NG/mL 0-0.045 NG/mL Final [facility] ([facility]): [address], [place] Performing Lab: [facility] (Lab): [address], [place] 07/14/2016 Glucose, Fingerstick, Blood (Glucometer) High Glubed 196 mg/dL 74-106 mg/dL Final [facility] ([facility]): [address], [place] Performing Lab: [facility] ([facility]): [address], [place] 07/12/2016 Gamma-glutamyl Transferase (Ggt), Serum No observation recorded. [facility]: [id number], [place] 07/12/2016 Gamma-glutamyl Transferase (Ggt), Serum Ggt 31 IU/L 0- 65 IU/L Final [facility]: [address], [place] 07/12/2016 Hepatic Function Panel, Serum Alt 41 U/L 0-55 U/L Final [facility]: [address] [place] [address], [place] Ast 34 U/L 5-34 U/L Final [facility] Laboratory: [address] [address], [place] Alk Phos 80 unit/L 40-150 unit/L Final [facility]: [address] Albumin 4.5 g/dL 3.5-5.0 g/dL Final [facility]: [address] High Total Bilirubin 1.8 mg/dL 0.2-1.2 mg/dL Final [facility] Laboratory: [address] High Direct Bilirubin 0.6 mg/dL 0.0-0.5 mg/dL Final [facility]: [address] Total Protein 7.1 g/dL 6.4-8.3 g/dL Final [facility] Laboratory: [address] 07/03/2016 CMP, Serum or Plasma Blood venous Alt 48.0 U/L 0.0-55.0 U/L Final [facility] Laboratory: [address] Blood venous High Ast 41.0 U/L 5.0-34.0 U/L Final [facility] Laboratory: [address] Blood venous Bun 12.0 mg/dL 8.0-26.0 mg/dL Final [facility] Laboratory: [address] Blood venous Alk Phos 86.0 unit/L 40.0-150.0 unit/L Final [facility]: [address] Blood venous High Glucose 135.0 mg/dL 70.0-99.0 mg/dL Final [facility]: [address] Blood venous Albumin 4.4 g/dL 3.5-5.0 g/dL Final [facility] Laboratory: [address] Blood venous Creatinine 0.9 mg/dL 0.7-1.3 mg/dL Final [facility]: [address] Blood venous eGFR Non- >60 mL/min/1.73m2 >60.0 mL/min/1.73m2 Final [facility] Laboratory: [address] [place] [address], [place] Blood venous High Total Bilirubin 1.8 mg/dL 0.2-1.2 mg/dL Final [facility] Laboratory: [address] [place] [address], [place] Blood venous eGFR - >60 mL/min/1.73m2 >60.0 mL/min/1.73m2 Final [facility]: [address] [place] [address], [place] Blood venous Sodium 144.0 mEq/L 137.0-144.0 mEq/L Final [facility]: [address] [place] [address], [place] Blood venous Potassium 4.4 mEq/L 3.5-5.0 mEq/L Final [facility] Laboratory: [address] [place] [address], [place] Blood venous Chloride 103.0 mmol/L 101.0-110.0 mmol/L Final [facility] Laboratory: [address] Blood venous Total Protein 7.0 g/dL 6.4-8.3 g/dL Final [facility] Laboratory: [address] Blood venous Calcium 9.8 mg/dL 8.4-10.2 mg/dL Final [facility] Laboratory: [address] [place] [address], [place] Blood venous Co2 27 mmol/L 22-31 mmol/L Final [facility]: [address] Blood venous Anion Gap 14.0 calc Final [facility] Laboratory: [address] [place] [address] 07/03/2016 Lipid Panel, Serum Blood venous High Hdl 82.0 mg/dL 40.0- 60.0 mg/dL Final [facility] Laboratory: [address] [place] [address], [place] Blood venous Triglyceride 86.0 mg/dL 0.0-149.0 mg/dL Final [facility] Laboratory: [address] [place] [address], [place] Blood venous VLDL Calc. 17.2 mg/dL Final [facility]: [address] Blood venous cholesterol/HDL Ratio 1.9 mg/dL Final [facility] Laboratory: [address] [place] [address], [place] Blood venous non-HDL Cholesterol Calc. 74.0 mg/dL 0.0-160.0 mg/dL Final [facility] Laboratory: [address] Blood venous Cholesterol 156.0 mg/dL 0.0-199.0 mg/dL Final [facility] Laboratory: [address] Blood venous LDL Calc. 56.8 mg/dL 0.0-130.0 mg/dL Final [facility] Laboratory: [address] [address], [place] 07/03/2016 HbA1C (Hemoglobin a1C), Blood High A1C W/eag 6.9 % 1.0-5.7 % Final [facility] Laboratory: [address] Average Blood Glucose 151.3 mg/dL Final [facility] Laboratory: [address] [address], [place] 02/16/2016 Hepatitis C Panel, Serum No observation recorded. 02/16/2016 CMP, Serum or Plasma No observation recorded. 02/16/2016 CMP, Serum or Plasma No observation recorded. 06/22/2015 Arthritis Panel No observation recorded. 05/05/2015 CMP, Serum or Plasma No observation recorded. 01/29/2015 CBC W/ Auto Diff No observation recorded. 11/03/2014 CMP, Serum or Plasma No observation recorded. Electrocardiogram Rate & Rhythm 65 [facility]: [address], [place] Interval 118 [facility]: [address], [place] QRS Duration 132 [facility]: [address], [place] QT Interval 432 [facility]: [address], [place] Albumin:creatinine Ratio, Urine Type Urine Microlalbumin 10 mg/L [facility]: [address], [place] Type Urine Creatinine 200 mg/dL [facility]: [address], [place] Type A:C Ratio <30 mg/g (Normal) [facility]: [address], [place] Glucose, Fingerstick, Blood Blood Glucose: mg/dl 131 [facility]: [address], [place] Past Encounters 09/27/2017 Benign Essential Hypertension; Mixed Anxiety and Depressive Disorder; Bilateral Carpal Tunnel Syndrome Fan Marrero MD: [address], [place] [address], Ph. 08/09/2017 Type 2 Diabetes Mellitus; Benign Essential Hypertension; Arteriosclerosis of Autologous Vein Coronary Artery Bypass Graft; Mixed Hyperlipidemia; Depressive Disorder; Body Mass Index 30+ - Obesity Alice Babcock MD: [address] [facility] [address], [place] [address], Ph. 07/17/2017 Influenza-like Symptoms; Acute Bronchitis Sulema Walsh MD: [address] [place] [phone], Ph. 06/20/2017 Bilateral Carpal Tunnel Syndrome; Benign Essential Hypertension Fan Marrero MD: [address] [place] [phone], Ph. 05/22/2017 Sciatica; Paresthesia of Upper Limb Fan Marrero MD: [address] [place] [phone], Ph. 05/01/2017 Type 2 Diabetes Mellitus without Complication; Mixed Hyperlipidemia; Seasonal Allergic Rhinitis; Depressive Disorder; Benign Essential Hypertension; Sciatica Fan Marrero MD: [address] [place] [phone], Ph. 04/18/2017 Sciatica; Low Back Pain Reyna Rivas WINE MANAGER: [address] [place] [phone], Ph. 03/26/2017 Cervical Radiculopathy; Body Mass Index 30+ - Obesity; Influenza Vaccination Fan Marrero MD: [address] [place] [phone], Ph. 02/27/2017 Elevated Levels of Transaminase & Lactic Acid Dehydrogenase Sulema Walsh MD: [address] [place] [phone], Ph. 01/25/2017 Arteriosclerosis of Autologous Vein Coronary Artery Bypass Graft; Seasonal Allergic Rhinitis; Depressive Disorder; Benign Essential Hypertension; Mixed Hyperlipidemia; Type 2 Diabetes Mellitus; Elevated Levels of Transaminase & Lactic Acid Dehydrogenase; Body Mass Index 30+ - Obesity; Adult Health Examination Vernell Wilkins MD: [address] [place] [phone], Ph. 01/23/2017 Mixed Hyperlipidemia; Type 2 Diabetes Mellitus Vernell Wilkins MD: [address] [place] [phone], Ph. 01/09/2017 Sore Throat Symptom; Body Mass Index 30+ - Obesity; Mass of Neck Sulema Walsh MD: [address] [place] [phone], Ph. 10/18/2016 Arteriosclerosis of Autologous Vein Coronary Artery Bypass Graft; Mixed Hyperlipidemia; Benign Essential Hypertension; Depressive Disorder; Type 2 Diabetes Mellitus; Benign Prostatic Hyperplasia; Screening for Malignant Neoplasm of Colon; Fecal Occult Blood: Positive; Elevated Total Bilirubin; Body Mass Index 30+ - Obesity Vernell Wilkins MD: [address] [place] [phone], Ph. 10/11/2016 Type 2 Diabetes Mellitus without Complication; Mixed Hyperlipidemia; Screening for Malignant Neoplasm of Prostate Vernell Wilkins MD: [address] [place] [phone], Ph. 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 08/17/2016 Rebecca Steinberg: [address] [facility], [address], [place] [address], Ph. 08/10/2016 Rebecca Steinberg: [address] [facility], [address], [place] [address], Ph. 07/18/2016 Rebecca Steinberg: [address] [facility] [address], [place] [address], Ph. 07/12/2016 Type 2 Diabetes Mellitus without Complication; Benign Essential Hypertension; Mixed Hyperlipidemia; AST/SGOT Level Raised; Elevated Total Bilirubin; Depressive Disorder; Chest Pain; Nausea; Diarrhea; Insomnia; Seasonal Allergic Rhinitis; Body Mass Index 25-29 - Overweight; Adult Health Examination; Viral Immunization; Pneumococcal Vaccination Vernell Wilkins MD: [address] [place] [phone], Ph. 07/03/2016 Benign Essential Hypertension; Mixed Hyperlipidemia; Depressive Disorder; Type II Diabetes Mellitus Uncontrolled; Chest Pain; Multiple Joint Pain; Insomnia; Body Mass Index 25-29 - Overweight; Adult Health Examination Vernell Wilkins MD: [address] [place] [phone], Ph. 03/14/2016 Type 2 Diabetes Mellitus without Complication; Mixed Hyperlipidemia; Depressive Disorder; Adult Health Examination; Influenza Vaccination Vernell Wilkins MD: [address] [place] [phone], Ph. 02/16/2016 Cough; Type II Diabetes Mellitus Uncontrolled; Coronary Atherosclerosis; Depressive Disorder; Body Mass Index 25-29 - Overweight; Adult Health Examination; Mixed Hyperlipidemia; Benign Essential Hypertension Vernell Wilkins MD: [address] [place] [phone], Ph. Social History Smoking Status Former Smoker (1 PPD) Notes: Quit :age 39 Vaccine List Vaccine Type Influenza, injectable, MDCK, quadrivalent 03/26/20170.5 mL influenza, injectable, quadrivalent 04/25/2015 influenza, seasonal, injectable 03/14/20160.5 mL pneumococcal polysaccharide PPV23 07/12/20160.5 mL Tdap 02/16/20160.5 mL zoster 07/12/20160.65 mL Plan of Care Patient Instructions Prescriptions were sent to your pharmacy today, please call if any issues labs ordered today- results should be back within the the next 7 days- check the patient portal For the vast majority of patients presenting with low back pain less than 4 weeks duration, imaging is not indicated. Remain active, apply superficial heat as needed. Return in 4 weeks if pain is not resolved. called [phone] LMOV for pt to return call to office if he needs assistance or has questions or concerns prior to appt on 08/24/2016 spoke with patient he is doing well at time of call, denies chest pain, sob, diff breathing , pain that radiates, advised to cont to anette symptoms and to seek medical attention as soon as possible if chest pain presents again, pt verbalized understanding and in agreement with plan of care, he will notify office if he needs sooner appt., but will be f/u with cardio on 07/24/2016, pt has no other questions or concerns at this time. Reminders Provider Appointments None recorded. Lab None recorded. Referral None recorded. Procedures None recorded. Surgeries None recorded. Imaging None recorded. Vitals 09/27/2017 01:45PM Est Patient Height Weight Blood Pressure 5 ft 11 in 140/74 mm[Hg] 08/09/2017 07:45AM Est Patient Height Weight BMI Blood Pressure 5 ft 11 in 220.8 lbs 30.8 kg/m2 136/88 mm[Hg] 07/17/2017 04:00PM Work In Same Day Height Weight BMI Blood Pressure 5 ft 11 in 218 lbs 30.4 kg/m2 140/70 mm[Hg] 06/20/2017 04:15PM Est Patient Height Weight BMI Blood Pressure 5 ft 11 in 218 lbs 30.4 kg/m2 (1) 154/80 mm[Hg] (2) 140/80 mm[Hg] 05/22/2017 08:00AM Est Patient Height Weight Blood Pressure 5 ft 11 in (1) 148/78 mm[Hg] (2) 124/72 mm[Hg] 05/01/2017 09:00AM Est Patient Height Weight BMI Blood Pressure 5 ft 11 in 227 lbs 31.7 kg/m2 140/78 mm[Hg] 04/18/2017 09:45AM Est Patient Height Weight BMI Blood Pressure 5 ft 11 in 222 lbs 31 kg/m2 (1) 144/80 mm[Hg] (2) 130/80 mm[Hg] 03/26/2017 10:30AM Est Patient Height Weight BMI Blood Pressure 5 ft 11 in 218 lbs 30.4 kg/m2 140/70 mm[Hg] 01/25/2017 07:30AM Est Patient Height Weight BMI Blood Pressure 5 ft 11 in 218 lbs 30.4 kg/m2 (1) 160/70 mm[Hg] (2) 140/72 mm[Hg] 01/09/2017 10:45AM Est Patient Height Weight BMI Blood Pressure 5 ft 11 in 220 lbs 30.7 kg/m2 130/70 mm[Hg] 10/18/2016 07:45AM Est Patient Height Weight BMI Blood Pressure 5 ft 11 in 215 lbs 30 kg/m2 114/60 mm[Hg] 09/15/2016 01:45PM Work In Same Day Height Weight BMI Blood Pressure 5 ft 11 in 202 lbs 28.2 kg/m2 97/53 mm[Hg] 07/12/2016 07:00AM Est Patient Height Weight BMI Blood Pressure 5 ft 11 in 205 lbs 28.6 kg/m2 (1) 141/82 mm[Hg] (2) 140/79 mm[Hg] 07/03/2016 01:45PM Est Patient Height Weight BMI Blood Pressure 5 ft 11 in 212 lbs 29.6 kg/m2 145/85 mm[Hg] 03/14/2016 03:30PM Est Patient Height Weight BMI Blood Pressure 5 ft 11 in 198 lbs 27.6 kg/m2 (1) 142/88 mm[Hg] (2) 132/87 mm[Hg] 02/16/2016 07:00AM Est Patient Height Weight BMI Blood Pressure 5 ft 11 in 204 lbs 28.5 kg/m2 135/86 mm[Hg]
[2018-05-21 13:40] VITALS: BP 101/80
== END | disposition home or self-care (01) ==
LOC: OR 11:36
PROVIDERS: ATTEND Ophthalmology
DX: H25.12 Age-related nuclear cataract, left eye (principal); I25.810 Atherosclerosis of coronary artery bypass graft(s) without angina pectoris; I10 Essential (primary) hypertension; G47.33 Obstructive sleep apnea (adult) (pediatric); I25.2 Old myocardial infarction; Z95.5 Presence of coronary angioplasty implant and graft; E11.9 Type 2 diabetes mellitus without complications; K21.9 Gastro-esophageal reflux disease without esophagitis; K44.9 Diaphragmatic hernia without obstruction or gangrene; M54.9 Dorsalgia, unspecified; M54.2 Cervicalgia; F32.9 Major depressive disorder, single episode, unspecified; Z79.02 Long term (current) use of antithrombotics/antiplatelets; Z79.82 Long term (current) use of aspirin; Z79.84 Long term (current) use of oral hypoglycemic drugs; Z95.1 Presence of aortocoronary bypass graft; Z87.891 Personal history of nicotine dependence
CPT/HCPCS: 66984; J2250; V2787

== ENCOUNTER → 2018-06-04 | Day surgery (SDC) | payer BC ==
--- OUTSIDE RECORDS SUMMARY | 2018-06-04 08:57 | XMS REPORT | Clinical Summary ---
Author [facility] Address Unknown Phone Unavailable Care Team Providers Care Geophysicist Name Role Phone PCP Unavailable Allergies No [...] Lot Implanted Type Area Manufactur er 04/17/2017 [id number] / / [id number] Device Clsr Angio-Seal Vip 8fr Cardiovasc N/A: Groin ST PANDA [id number] - [id number] ular MED:CARDIA Implanted: Qty: 1 on 09/13/2016 by Ketan Orr MD 04/24/2017 [id number] / / [id number] Synergy Stents-Cor N/A: Coronary [place] Implanted: Qty: 1 on 09/13/2016 by Ketan Brennan MD 04/26/2017 [id number] / / [id number] Synegy Stents-Cor N/A: Coronary [place] Implanted: Qty: 1 on 09/13/2016 by Ketan Brennan MD Results Not on fileafter 06/03/2017 Insurance Payer Benefit Subscriber ID Type Phone Address Plan / Group [facility] xxxxxxxxx [facility] Advance Directives For more information, please contact: [address] [address] Date Inactivated Comments Code Status Date Activated 09/14/2016 4:30 PM Full Code 09/13/2016 5:34 PM This code status was determined by: Patient 09/13/2016 5:34 PM Full Code 09/13/2016 2:21 AM This code status was determined by: Patient
[2018-06-04 12:02] VITALS: BP 131/67
== END | disposition home or self-care (01) ==
LOC: OR 08:56
PROVIDERS: ATTEND Ophthalmology
DX: H25.11 Age-related nuclear cataract, right eye (principal); I10 Essential (primary) hypertension; I25.10 Atherosclerotic heart disease of native coronary artery without angina pectoris; Z95.5 Presence of coronary angioplasty implant and graft; Z95.1 Presence of aortocoronary bypass graft; I25.2 Old myocardial infarction; E78.5 Hyperlipidemia, unspecified; E11.9 Type 2 diabetes mellitus without complications; Z79.84 Long term (current) use of oral hypoglycemic drugs; K21.9 Gastro-esophageal reflux disease without esophagitis; G47.33 Obstructive sleep apnea (adult) (pediatric); F32.9 Major depressive disorder, single episode, unspecified; Z87.891 Personal history of nicotine dependence; Z79.82 Long term (current) use of aspirin; Z79.02 Long term (current) use of antithrombotics/antiplatelets
CPT/HCPCS: 36415; 66984; 82948; J2250; V2787

== ENCOUNTER 2022-11-30 08:57 | Outpatient (RCR) | payer MEDICARE ==
[~2022-11-30 08:57] MED LIST changes: -FENTANYL CITRATE/PF 100MCG/2 ML INJ ONE; -INSULIN REGULAR, HUMAN 100 UNIT/1 ML 3ML VIAL ONE; -MIDAZOLAM HCL 2 MG/2 ML VIAL ONE; -OR PHACO EYE KIT ONE; -PREOP PHACO EYE KIT ONE
== END 2022-12-15 ==
LOC: OT 08:57
PROVIDERS: ATTEND Specialist
DX: M65.841 Other synovitis and tenosynovitis, right hand (principal)